=== PATIENT | male | born 1945 | race African-American/Black ===

== ENCOUNTER 2018-04-06 11:07 | Day surgery (SDC) | payer BC, OTHER ==
[2018-04-06 13:33] LABS: ADD MAN DIFF? NO
[2018-04-06 13:35] LABS: BASOPHILS % 0.6 % (0.0-2.0); EOSINOPHILS # 0.2 10^3/ul (0.0-0.5); EOSINOPHILS % 2.6 % (0.0-7.0); HEMATOCRIT 50.6 % (42.0-52.0); LYMPHOCYTES % 30.7 % (15.0-51.0); MEAN CORPUSCULAR HEMOGLOBIN 31.5 pg (29.0-33.0); MEAN CORPUSCULAR HGB CONC 33.6 g/dl (32.0-37.0); MEAN CORPUSCULAR VOLUME 93.9 fl (82.0-101.0); MEAN PLATELET VOLUME 9.7 fl (7.4-10.4); MONOCYTE # 0.5 10^3/ul (0.3-0.9); MONOCYTES % 7.6 % (0.0-11.0); NEUTROPHIL # 3.9 10^3/ul (1.6-7.5); NEUTROPHILS % 58.2 % (39.0-77.0); PLATELET COUNT 193 10^3/UL (140-415); RED BLOOD COUNT 5.39 10^6/ul (4.70-6.10); RED CELL DISTRIBUTION WIDTH 13.2 % (11.5-14.5)
[2018-04-06 13:35] LABS: WHITE BLOOD COUNT 6.6 10^3/ul (4.8-10.8)
[2018-04-06 13:38] LABS: INR 0.98; PROTIME 13.1 Sec (11.9-14.9)
[2018-04-06 13:39] LABS: PARTIAL THROMBOPLASTIN TIME 26.4 Sec (25.0-35.0)
[2018-04-06 13:52] LABS: ALANINE AMINOTRANSFERASE 41 IU/L (13-69); ALBUMIN 4.2 g/dl (3.3-4.9); ALBUMIN/GLOBULIN RATIO 1.31; ALKALINE PHOSPHATASE 59 IU/L (42-121); ANION GAP 13 (8-16); ASPARTATE AMINO TRANSFERASE 38 IU/L (15-46); BILIRUBIN,INDIRECT 0.4 mg/dl (0-1.1); BILIRUBIN,TOTAL 0.4 mg/dl (0.2-1.3); BLOOD UREA NITROGEN 14 mg/dl (7-20); CALCIUM 9.5 mg/dl (8.4-10.2); CARBON DIOXIDE 30 mmol/L (21-31); CHLORIDE 106 mmol/L (97-110); CREATININE 1.33 mg/dl (0.61-1.24); GLUCOSE 92 mg/dl (70-220); POTASSIUM 4.9 mmol/L (3.5-5.1); SODIUM 144 mmol/L (135-144); TOTAL PROTEIN 7.4 g/dl (6.1-8.1)
[2018-04-06] MEDS ORDERED: SOD CHLORIDE 0.9% 1,000 ML IV (14:00)
[2018-04-06] MEDS ORDERED: IODIXANOL LOCM 100 ML BTL (14:17)
[2018-04-06] MEDS ORDERED: LIDOCAINE 1% (MDV) 20 ML INJ (14:17)
[2018-04-06] MEDS ORDERED: HEPARIN 1000 UNITS/ML 10 ML INJ (14:17)
[2018-04-06] MEDS ORDERED: VERAPAMIL 5 MG INJ (14:18)
[2018-04-06] MEDS ORDERED: NITROGLYCERIN (IC) 100 MCG/ML INJ (14:18)
[2018-04-06] MEDS ORDERED: FENTAnyl 50 MCG/ML VIAL (14:36)
[2018-04-06] MEDS ORDERED: MIDAZOLAM 1 MG/ML 2 ML INJ (14:36)
== END 2018-04-06 20:00 | disposition home or self-care (01) ==
LOC: CCL 11:07 → SDS 11:07 → CCL 20:00
DX: I25.10 Atherosclerotic heart disease of native coronary artery without angina pectoris (principal)
CPT/HCPCS: 71045; 80053; 85025; 85610; 85730; 93458